=== PATIENT | female | born 1990 | race Caucasian/White ===

== ENCOUNTER → 2016-10-21 | Outpatient (CLI) | payer OTHER ==
--- NOTE | 2016-10-21 15:54 | US ---
Thyroid Sonogram Clinical Indication: Thyromegaly. Technique: Longitudinal and transverse images of the thyroid gland were obtained. Findings: The right and left lobes of the thyroid gland are normal in size and echotexture. The ist hmus is normal in thickness. The right thyroid measures 1.3 x 1.4 x 3.1 cm and the left thyroid measu res 1.0 x 1.1 x 3.5 cm. The isthmus is normal at 2 mm. Impression: Normal thyroid sonogram.
== END ==
LOC: BRMIMAGING 15:11
PROVIDERS: ATTEND Physician Assistant
DX: E01.0 Iodine-deficiency related diffuse (endemic) goiter (principal)

== ENCOUNTER → 2018-08-13 | Outpatient (CLI) | payer OTHER | LOC: BRMIMAGING 09:43 | PROVIDERS: ATTEND Hospitalist | DX: S62.141A Displaced fracture of body of hamate [unciform] bone, right wrist, initial encounter for closed fracture (principal) | CPT/HCPCS: 73110-PO; 73130-PO ==